=== PATIENT | female | born 1995 | race Caucasian/White ===

== ENCOUNTER 2025-03-24 20:55 | Emergency (ER) | payer BC ==
[~2025-03-24] VITALS: Ht 160 cm; Wt 91.0 kg
[2025-03-24 21:17] VITALS: O2SAT 100
[2025-03-24 21:46] LABS: CLARITY URINE CLOUDY (CLEAR); COLOR URINE DARK YELLOW (YELLOW); GLUCOSE URINE NEGATIVE (NEGATIVE); KETONES URINE 4+ (NEGATIVE); LEUKOCYTE ESTERASE URINE NEGATIVE (NEGATIVE); NITRITE URINE NEGATIVE (NEGATIVE); OCCULT BLOOD URINE NEGATIVE (NEGATIVE); PH URINE 5.5 (4.5-8.0); PROTEIN URINE 1+ (NEGATIVE); SPECIFIC GRAVITY URINE 1.033 (1.005-1.030); UROBILINOGEN URINE 1.0 E.U./dL (0.2-1.0)
[2025-03-24 22:02] LABS: BASOPHILS % 0.2 % (0.0-2.0); EOSINOPHILS % 0.6 % (0.0-5.0); HEMATOCRIT. 36.9 % (36.0-48.0); HEMOGLOBIN. 12.5 g/dL (12.0-16.0); LYMPHOCYTES % 11.0 % (20.0-50.0); MEAN PLATELET VOLUME 7.5 fl (7.4-10.4); MONOCYTES % 5.9 % (2.0-8.0); NEUTROPHILS % 82.3 % (40.0-76.0); PLATELET 311 x1000/uL (130-400); RED BLOOD CELL COUNT 4.22 mill/uL (4.2-5.4); RED CELL DISTRIBUTION WIDTH 13.4 % (11.6-14.6)
[2025-03-24 22:04] LABS: BACTERIA URINE 2+; RBC URINE 0-2 /hpf (0-2); SQUAMOUS EPITHELIAL CELL URINE 3+ /lpf (RARE/1+); WBC URINE 0-2 /hpf (0-2)
[2025-03-24 22:10] LABS: CREATININE 0.6 mg/dL (0.6-1.0); UREA NITROGEN BLOOD 8 mg/dL (9-23)
[2025-03-24 22:22] LABS: B-HCG QUANTITATIVE 16168 mIU/mL (<6)
[2025-03-25] MEDS: SODIUM CHLORIDE 0.9% 1,000 ML IV ONE (00:47)
[2025-03-25] MEDS: FAMOTIDINE 20MG/2ML VIAL IV ONE (01:05)
[2025-03-25] MEDS: ONDANSETRON HCL 4MG/2ML INJ IV ONE (01:05)
[2025-03-25] MEDS: KCL 20MEQ/100ML PREMIX 100 ML IV ONE (02:21)
[2025-03-25] MEDS ORDERED: ONDA4TAB50 MT (03:03)
[2025-03-25 04:25] VITALS: BP 118/46; PULSE 60; RESP 17; TEMP 36.7; O2SAT 99
== END 2025-03-25 04:29 | disposition home or self-care (01) ==
LOC: ER 20:55 → CMPBEDREQ 03-25 10:35
DX: O26.892 Other specified pregnancy related conditions, second trimester (principal); R11.2 Nausea with vomiting, unspecified; E87.6 Hypokalemia; J45.909 Unspecified asthma, uncomplicated; Z3A.19 19 weeks gestation of pregnancy
CPT/HCPCS: 80048; 81003; 81025; 84702; 85025; 36415; 99284; 96361; 96365; 96375; J1308; J2405; J3480; J7030; Z7610; A4606